=== PATIENT | female | born 1945 | race African-American/Black ===

== ENCOUNTER 2018-10-22 20:41 | Emergency (ER) | payer BC, OTHER ==
[2017-08-02 15:30] VITALS: BP 177/76
[~2018-10-22 20:41] MED LIST: ACET500T68 PO; AMLO10TA6 PO; CIPR250T PO; DOCU100C28 PO; FERR325T14 PO; GLYB5TAB3 PO; LISI10TA2 PO; METF500T16 PO; Metronidazole PO; NAPR500T8 PO; TRAM-48 PO
== END 2018-10-22 21:33 | disposition left against medical advice (07) ==
LOC: ER 20:41
DX: R07.81 Pleurodynia (principal); R05 Cough; Z53.21 Procedure and treatment not carried out due to patient leaving prior to being seen by health care provider

== ENCOUNTER 2020-07-06 14:00 | Emergency (ER) | payer BC, OTHER ==
[~2020-07-06] VITALS: Ht 162.6 cm; Wt 90.0 kg
[~2020-07-06 14:00] MED LIST changes: -AMLO10TA6 PO; +AMLO10TA8 PO
[2020-07-06] MEDS ORDERED: IV NORMAL SALINE 1000ML BAG 1,000 ML IV ONE (15:15)
[2020-07-06] MEDS ORDERED: ONDANSETRON PF 4 MG/2 ML VIAL. IVP ONE (15:15)
[2020-07-06] MEDS ORDERED: MORPHINE SULFATE 10 MG/ML VIAL. IV ONE (15:15)
[2020-07-06 15:16] LABS: BILIRUBIN,URINE NEGATIVE (NEG); CLARITY,URINE CLEAR; COLOR,URINE YELLOW; NITRITE,URINE NEGATIVE (NEG); PH,URINE 6.5 (<5.0-8.0); PROTEIN,URINE >=300 mg/dL (NEG-TRACE)
[2020-07-06 15:26] LABS: BARBITURATES NEG (NEG); BENZODIAZEPINES NEG (NEG); CANNABINOIDS NEG (NEG); COCAINE NEG (NEG); METHADONE NEG (NEG); OPIATES NEG (NEG); PHENCYCLIDINE NEG (NEG)
[2020-07-06 15:39] LABS: AMPHETAMINE/METHAMPHETAMINE NEG (NEG)
[2020-07-06 15:51] LABS: BASO # 0.1 x10^3/uL (0.0-0.2); BASO % 1 % (0-3); EOS # 0.1 x10^3/uL (0.0-0.7); EOS % 1 % (0-3); HEMATOCRIT 29.3 % (36.0-47.0); LYMPH % 19 % (24-48); MEAN CORPUSCULAR HEMOGLOBIN 23 pg (25-35); MEAN CORPUSCULAR HGB CONC 34 g/dL (31-37); MEAN CORPUSCULAR VOLUME 68 fL (79-100); MONO # 0.9 x10^3/uL (0.0-1.1); MONO % 9 % (0-9); NEUT # 7.3 x10^3/uL (1.8-7.7); NEUT % 70 % (31-73); PLATELET COUNT 269 x10^3/uL (140-400); RED BLOOD COUNT 4.33 x10^6/uL (3.50-5.40); RED CELL DISTRIBUTION WIDTH 20.4 % (11.5-14.5); WHITE BLOOD COUNT 10.4 x10^3/uL (4.0-11.0)
[2020-07-06 15:53] LABS: SQUAMOUS EPITHELIAL CELL,UR FEW /LPF
[2020-07-06 15:54] LABS: BACTERIA,URINE MANY /HPF (0-FEW); RBC,URINE 0 /HPF (0-2)
[2020-07-06 16:03] LABS: CALCIUM 8.4 mg/dL (8.5-10.1); CREATININE 1.7 mg/dL (0.6-1.0); GFR 35.5; POTASSIUM 3.9 mmol/L (3.5-5.1)
--- NOTE | 2020-07-06 16:07 | PHYS DOC ---
Past Medical History Past Medical History: Asthma, Bronchitis, Diabetes-Type II, Diverticulitis, GERD, High Cholesterol, Hypertension, TIA (KALPANA HERNANDEZ APRN) Past Surgical History: Cholecystectomy, Hysterectomy Additional Past Surgical Histo: RIGHT SHOULDER SURGERY (KALPANA HERNANDEZ APRN) Smoking Status: Never Smoker Alcohol Use: None Drug Use: None (KALPANA HERNANDEZ APRN) General Adult EDM: Chief Complaint: ABDOMINAL PAIN HPI: HPI: Patient is a 75 year old female with history of diabetes type 2, hypertension, high cholesterol, who presents to the ED today complaining of 10 out of 10 lower abdominal pain that has been going on intermittently for 1 week. Patient describes the pain as sharp, denies any exacerbating or relieving factors though she mentions sitting up straight relieves some of the pain. She states she has not been able to have a normal bowel movement for couple days. She states she gets small amount of slimy stools occasionally for 1 week. Denies any fever, nausea, vomiting. (KALPANA HERNANDEZ APRN) Review of Systems: Review of Systems: Constitutional: Denies fever or chills. [] Eyes: Denies change in visual acuity. [] HENT: Denies nasal congestion or sore throat. [] Respiratory: Denies cough or shortness of breath. [] Cardiovascular: Denies chest pain or edema. [] GI: Reports abdominal pain, slimy stools, denies nausea, vomiting, bloody stools or diarrhea. [] : Denies dysuria. [] Musculoskeletal: Denies back pain or joint pain. [] Integument: Denies rash. [] Neurologic: Denies headache, focal weakness or sensory changes. [] Psychiatric: Denies depression or anxiety. [] (KALPANA HERNANDEZ APRN) Heart Score: Risk Factors: Risk Factors: DM, Current or recent (<one month) smoker, HTN, HLP, family history of CAD, obesity. Risk Scores: Score 0 - 3: 2.5% MACE over next 6 weeks - Discharge Home Score 4 - 6: 20.3% MACE over next 6 weeks - Admit for Clinical Observation Score 7 - 10: 72.7% MACE over next 6 weeks - Early Invasive Strategies (KALPANA HERNANDEZ APRN) Current Medications: Current Medications Medications (Trade) Dose Ordered Sig/Angeli Start Time Stop Time Status Last Admin Dose Admin Morphine Sulfate (Morphine Sulfate) 5 mg 1X ONCE 07/06/20 15:15 07/06/20 15:16 DC 07/06/20 15:45 5 MG Ondansetron HCl (Zofran) 4 mg 1X ONCE 07/06/20 15:15 07/06/20 15:16 DC Sodium Chloride 1,000 ml @ 1,000 mls/hr 1X ONCE 07/06/20 15:15 07/06/20 16:14 07/06/20 15:44 1,000 MLS/HR (KALPANA HERNANDEZ TICKET MAKER) Allergies: Allergies: Allergies Coded Allergies Type Severity Reaction Last Updated Verified Iodinated Contrast- Oral and IV Dye Adverse Reaction Intermediate NAUSEATED 08/01/17 Yes Penicillins Adverse Reaction Mild SHAKES 12/07/15 Yes (KALPANA HERNANDEZ TICKET MAKER) Physical Exam: PE: Constitutional: Well developed, well nourished, no acute distress, non-toxic appearance. [] HENT: Normocephalic, atraumatic, bilateral external ears normal, oropharynx moist, no oral exudates, nose normal. [] Eyes: PERRLA, EOMI, conjunctiva normal, no discharge. [] Neck: Normal range of motion, no tenderness, supple, no stridor. [] Cardiovascular:Heart rate regular rhythm, no murmur [] Lungs & Thorax: Bilateral breath sounds clear to auscultation [] Abdomen: Rounded abdomen. Bowel sounds normal, soft, tenderness diffusely throughout the abdomen, tenderness worse on the left mid and lower quadrant, no right upper quadrant or right lower quadrant tenderness, no guarding, no rebound pain or tenderness no masses, no pulsatile masses. [] Skin: Warm, dry, no erythema, no rash. [] Back: No tenderness, no CVA tenderness. [] Extremities: No tenderness, no cyanosis, no clubbing, ROM intact, no edema. [] Neurologic: Alert and oriented X 3, normal motor function, normal sensory function, no focal deficits noted. [] Psychologic: Affect normal, judgement normal, mood normal. [] (KALPANA HERNANDEZ TICKET MAKER) Current Patient Data: Labs: Laboratory Tests Test 07/06/20 14:59 07/06/20 15:30 Urine Collection Type Unknown Urine Color Yellow Urine Clarity Clear Urine pH 6.5 (<5.0-8.0) Urine Specific [place] 1.010 (1.000-1.030) Urine Protein >=300 mg/dL (NEG-TRACE) Urine Glucose (UA) Negative mg/dL (NEG) Urine Ketones (Stick) Negative mg/dL (NEG) Urine Blood Negative (NEG) Urine Nitrite Negative (NEG) Urine Bilirubin Negative (NEG) Urine Urobilinogen Dipstick 1.0 mg/dL (0.2 mg/dL) Urine Leukocyte Esterase Small (NEG) Urine RBC 0 /HPF (0-2) Urine WBC 11-20 /HPF (0-4) Urine Squamous Epithelial Cells Few /LPF Urine Bacteria Many /HPF (0-FEW) Urine Mucus Slight /LPF Urine Opiates Screen Neg (NEG) Urine Methadone Screen Neg (NEG) Urine Barbiturates Neg (NEG) Urine Phencyclidine Screen Neg (NEG) Urine Amphetamine/Methamphetamine Neg (NEG) Urine Benzodiazepines Screen Neg (NEG) Urine Cocaine Screen Neg (NEG) Urine Cannabinoids Screen Neg (NEG) Urine Ethyl Alcohol Neg (NEG) White Blood Count 10.4 x10^3/uL (4.0-11.0) Red Blood Count 4.33 x10^6/uL (3.50-5.40) Hemoglobin 10.0 g/dL (12.0-15.5) L Hematocrit 29.3 % (36.0-47.0) L Mean Corpuscular Volume 68 fL (79-100) L Mean Corpuscular Hemoglobin 23 pg (25-35) L Mean Corpuscular Hemoglobin Concent 34 g/dL (31-37) Red Cell Distribution Width 20.4 % (11.5-14.5) H Platelet Count 269 x10^3/uL (140-400) Neutrophils (%) (Auto) 70 % (31-73) Lymphocytes (%) (Auto) 19 % (24-48) L Monocytes (%) (Auto) 9 % (0-9) Eosinophils (%) (Auto) 1 % (0-3) Basophils (%) (Auto) 1 % (0-3) Neutrophils # (Auto) 7.3 x10^3/uL (1.8-7.7) Lymphocytes # (Auto) 2.0 x10^3/uL (1.0-4.8) Monocytes # (Auto) 0.9 x10^3/uL (0.0-1.1) Eosinophils # (Auto) 0.1 x10^3/uL (0.0-0.7) Basophils # (Auto) 0.1 x10^3/uL (0.0-0.2) Platelet Estimate Pending Laboratory Tests 07/06/20 15:30 Vital Signs: Vital Signs Date Time Temp Pulse Resp B/P (MAP) Pulse Ox O2 Delivery O2 Flow Rate FiO2 07/06/20 15:45 24 100 07/06/20 14:39 97.7 89 184/81 (115) Room Air 97.7 (KALPANA HERNANDEZ APRN) EKG: EKG: [] (KALPANA HERNANDEZ APRN) Radiology/Procedures: Radiology/Procedures: []PROCEDURE: CT ABDOMEN PELVIS WO CONTRAST Exam: CT of abdomen and pelvis without contrast INDICATION: Lower abdominal pain for 2 days TECHNIQUE: Sequential axial images through the abdomen and pelvis obtained without IV contrast. Sagittal and coronal reformatted images were reconstructed from the axial data and reviewed. Comparisons: None FINDINGS: Heart size is normal. No pericardial effusion. Strandy opacities at dependent portion lungs likely cyst. No pleural effusion. Evaluation of the solid organs is limited secondary to noncontrast technique. Liver, spleen, pancreas, and adrenals are unremarkable. Gallbladder surgically absent. No perinephric inflammation or hydronephrosis. No renal or ureteral calculi are identified. Bladder is decompressed not well evaluated. Uterus is absent. No abnormal adnexal mass. There is wall thickening at the sigmoid colon with adjacent fat stranding. This is an area of diverticulosis. The remainder of the large and small bowel are unremarkable. Appendix is not identified. No free abdominal air or fluid. No obstruction. Abdominal aorta has a normal course and caliber. No enlarged abdominal lymph nodes are identified. No suspicious osseous lesions or acute fractures. IMPRESSION: Findings likely related to diverticulitis at the sigmoid colon. No evidence for perforation or adjacent abscess. Exposure: One or more of the following in the visualized dose reduction techniques were utilized for this examination: 1. Automated exposure control 2. Adjustment of the MA and/or KV according to patient size 3. Use of iterative of reconstructive technique Electronically signed by: Bailee Nguyen MD (07/06/2020 4:02 PM) [id number] DICTATED and SIGNED BY: BAILEE NGUYEN MD DATE: 07/06/20 1551 (KALPANA HERNANDEZ APRN) Course & Med Decision Making: Course & Med Decision Making Pertinent Labs and Imaging studies reviewed. (See chart for details) This is a 75-year-old female patient presenting to the ED today with lower abdominal pain that began a week ago. CBC with a normal WBC, hemoglobin 10.0 hematocrit 29.3, this is around patient's baseline, creatinine 1.7, BUN 15. Urine analysis noted for UTI, CT of the abdomen and pelvic was noted for acute diverticulitis. Her vitals are stable. Patient was given morphine for pain. My understanding she refused Zofran and the rest of the medications. IV fluids were given. I went to give patient results. She is complaining after getting the morphine she has more pain than when she came to the ED. I offered her a couple choices for her pain including GI cocktail. She refused stating she cannot take anymore medicines from us. She states we are trying to kill her with all of this medications. Informed patient she has diverticulitis, and is going to get Cipro and Flagyl IV in the ED. Nursing staff came back and told me patient refused IV antibiotics and the rest of the medication stating are giving her too many medications and are trying to kill her. I went and talked to patient we had a lengthy conversation. Informed patient advantages of IV antibiotics. Patient continued to refuse stating we are trying to kill her with all this medications. She asked why her daughter was left in the waiting room. Informed her due to COVID19 will leave patient's outside or at the waiting toom. She asked if we have COVID19 patients in this hospital, informed patient this is a hospital and we have COVID19 patients we cannot discriminate on them. She said that she has to leave right now because she cannot be in a hospital with COVID19 patients. Gave her a prescription for Flagyl and Cipro, dicyclomine and Zofran. Recommended she follows up with her own PCP and GI doctor in the course of this week or next week. She refused to be admitted and left. (KALPANA HERNANDEZ APRN) Dragon Disclaimer: Dragon Disclaimer: This electronic medical record was generated, in whole or in part, using a voice recognition dictation system. (KALPANA HERNANDEZ APRN) Departure Departure Impression: Primary Impression: Acute diverticulitis Additional Impressions: ARF (acute renal failure) Qualified Codes: N17.9 - Acute kidney failure, unspecified UTI (urinary tract infection) Qualified Codes: N39.0 - Urinary tract infection, site not specified Disposition: ADMITTED INPATIENT Condition: STABLE Referrals: HELEN JONES MD (PCP) follow up in the course of this week ADA WILEY MD follow up in one week Patient Instructions: Diverticulitis, [id number] Additional Instructions: You have diverticulitis infection, will put you on antibiotics, sure you complete them. Your creatinine was 1.7, this is slightly higher than normal. Push fluids. Follow-up with your doctor in the course of this week. Come back to the ED at any point symptoms worsen. Scripts Dicyclomine Hcl (DICYCLOMINE HCL) 20 Mg Tablet 1 TAB PO TID, #15 TAB 1 Refill Prov: KALPANA HERNANDEZ APRN 07/06/20 Ondansetron (ONDANSETRON ODT) 4 Mg Tab.rapdis 1 TAB PO PRN Q6-8HRS, #16 TAB Prov: KALPANA HERNANDEZ APRN 07/06/20 Metronidazole (FLAGYL) 500 Mg Tablet 500 MG PO TID, #30 TAB Prov: KALPANA HERNANDEZ APRN 07/06/20 Ciprofloxacin Hcl (CIPRO) 500 Mg Tablet 1 TAB PO BID for 10 Days, #20 TAB 0 Refills Prov: KALPANA HERNANDEZ APRN 07/06/20 Justicifation of Admission Dx: Justifications for Admission: Justification of Admission Dx: N/A (KALPANA HERNANDEZ APRN) Attending Signature Attending Signature I have reviewed the PA/OPERATIONS INSPECTOR's note and plan of care. I was available for consultation as needed during the patient's visit in the emergency department. I agree with the clinical impression, plan, and disposition. (ALICE HERNANDEZ DO) KALPANA HERNANDEZ APRN Jul 06, 2020 16:06 ALICE HERNANDEZ DO Jul 06, 2020 18:44
[2020-07-06 16:09] LABS: ALBUMIN 2.9 g/dL (3.4-5.0); ALBUMIN/GLOBULIN RATIO 0.6 (1.0-1.7); MAGNESIUM 2.2 mg/dL (1.8-2.4); TOTAL BILIRUBIN 0.8 mg/dL (0.2-1.0); TOTAL PROTEIN 7.7 g/dL (6.4-8.2)
[2020-07-06] MEDS ORDERED: LIDO:MAALOX 1:1 20 ML SINGLE DOSE. SWSW ONE (16:15)
[2020-07-06] MEDS ORDERED: CIPROFLOXACIN 400MG PREMIX 200 ML IV ONE (16:15)
[2020-07-06 16:30] VITALS: BP 163/75
[2020-07-06] MEDS ORDERED: CIPR500T94 PO (16:39)
[2020-07-06] MEDS ORDERED: DICY20TA3 PO (16:39)
[2020-07-06] MEDS ORDERED: ONDA4TAB12 PO (16:39)
[2020-07-06] MEDS ORDERED: METR500T PO (16:39)
[2020-07-06 16:44] LABS: ANISOCYTOSIS MOD; HYPOCHROMIA SLIGHT; MICROCYTOSIS MARKED; PLT ESTIMATE ADEQUATE (ADEQUATE); POLYCHROMASIA SLIGHT; TARGET CELLS MOD
== END 2020-07-06 16:56 | disposition home or self-care (01) ==
LOC: ER 14:00
DX: N39.0 Urinary tract infection, site not specified (principal); K57.32 Diverticulitis of large intestine without perforation or abscess without bleeding; N17.9 Acute kidney failure, unspecified; R10.30 Lower abdominal pain, unspecified; J45.909 Unspecified asthma, uncomplicated; E11.9 Type 2 diabetes mellitus without complications; K21.9 Gastro-esophageal reflux disease without esophagitis; E78.00 Pure hypercholesterolemia, unspecified; I10 Essential (primary) hypertension; Z86.73 Personal history of transient ischemic attack (TIA), and cerebral infarction without residual deficits; Z90.49 Acquired absence of other specified parts of digestive tract; Z90.710 Acquired absence of both cervix and uterus; Z98.890 Other specified postprocedural states; Z88.0 Allergy status to penicillin; Z91.040 Latex allergy status
CPT/HCPCS: 36415; 74176; 80053; 80307; 81001; 83690; 83735; 85025; 87086; 96361; 96365; 96368; 96375; 99284; G0480; J0744; J2270; J7030; J3490

== ENCOUNTER 2021-10-16 12:42 | Emergency (ER) | payer OTHER ==
[~2021-10-16] VITALS: Ht 162.6 cm; Wt 93.0 kg
[~2021-10-16 12:42] MED LIST changes: +AMLO-187 PO; -AMLO10TA8 PO; +CIPR500T94 PO; +DICY20TA PO; +LISI10TA16 PO; -LISI10TA2 PO; +METR500T PO; +ONDA4TAB12 PO
[2021-10-16] MEDS ORDERED: ASPIRIN CHEWABLE 81 MG TABLET. PO ONE (13:15)
[2021-10-16] MEDS ORDERED: NITROGLYCERIN OINT 1 GM PACKET. TP ONE (13:15)
[2021-10-16 13:17] LABS: BASO # 0.1 x10^3/uL (0.0-0.2); BASO % 1 % (0-3); EOS # 0.5 x10^3/uL (0.0-0.7); EOS % 7 % (0-3); HEMATOCRIT 27.6 % (36.0-47.0); HEMOGLOBIN 9.3 g/dL (12.0-15.5); LYMPH # 1.5 x10^3/uL (1.0-4.8); LYMPH % 23 % (24-48); MEAN CORPUSCULAR HEMOGLOBIN 24 pg (25-35); MEAN CORPUSCULAR HGB CONC 34 g/dL (31-37); MEAN CORPUSCULAR VOLUME 70 fL (79-100); MONO # 0.5 x10^3/uL (0.0-1.1); MONO % 8 % (0-9); NEUT # 3.9 x10^3/uL (1.8-7.7); NEUT % 61 % (31-73); PLATELET COUNT 201 x10^3/uL (140-400); RED BLOOD COUNT 3.95 x10^6/uL (3.50-5.40); RED CELL DISTRIBUTION WIDTH 17.7 % (11.5-14.5); WHITE BLOOD COUNT 6.4 x10^3/uL (4.0-11.0)
[2021-10-16 13:29] LABS: CALCIUM 8.8 mg/dL (8.5-10.1); CREATININE 2.3 mg/dL (0.6-1.0); GFR 24.9; POTASSIUM 5.1 mmol/L (3.5-5.1)
[2021-10-16 13:35] LABS: ALBUMIN 3.6 g/dL (3.4-5.0); ALBUMIN/GLOBULIN RATIO 0.9 (1.0-1.7); MAGNESIUM 2.8 mg/dL (1.8-2.4); TOTAL BILIRUBIN 0.7 mg/dL (0.2-1.0); TOTAL PROTEIN 7.6 g/dL (6.4-8.2)
[2021-10-16 13:38] LABS: PROTHROMBIN TIME PATIENT 13.5 SEC (11.7-14.0)
[2021-10-16 13:42] LABS: D-DIMER 0.61 ug/mlFEU (0.00-0.50)
--- NOTE | 2021-10-16 13:58 | RAD ---
XR CHEST 1V CLINICAL INDICATIONS: Reason: Chest pain / Spl. Instructions: / History: COMPARISON: July 31, 2017. Findings: No new lung infiltrate or pleural effusion or pulmonary edema or lung mass or pneumothorax is seen. The heart size, pulmonary vasculature, mediastinum and both severino are stable. IMPRESSION: No acute radiographic abnormality is seen. Electronically signed by: Masoud Tiwari MD (10/16/2021 1:55 PM) [id number]
--- NOTE | 2021-10-16 14:20 | PHYS DOC ---
Past Medical History Past Medical History: Asthma, Bronchitis, Diabetes-Type II, Diverticulitis, GERD, High Cholesterol, Hypertension, TIA (ALICE QUINTANILLA APRN) Past Surgical History: Cholecystectomy, Hysterectomy Additional Past Surgical Histo: RIGHT SHOULDER SURGERY (ALICE QUINTANILLA APRN) Smoking Status: Never Smoker Alcohol Use: None Drug Use: None (ALICE QUINTANILLA APRN) General Adult EDM: Chief Complaint: CHEST PAIN HPI: HPI: Patient is a 76-year-old female who presents to the emergency department complaining of a sudden onset left-sided chest pain after reaching into her tub to pick something out. Patient reports she has had a heart attack in the past, took 2 nitroglycerin sublingual which brought her pain from a 8 out of 10 down to a 0. Patient reports approximately 30 minutes later her chest pain started to come back so she called 911 for transport to the emergency department. Patient currently reports a 4 out of 10 chest pain. Patient denies shortness of breath, cough, chest or nasal congestion, denies diaphoretic episodes, syncopal episodes or near syncopal episodes. Patient reports a history of hypertension, diabetes type 2, hypercholesterol, chronic kidney disease. She denies recent fever or chills. Patient denies other physical complaints or physical concerns. (ALICE QUINTANILLA APRN) Review of Systems: Review of Systems: 14 body systems of review of systems have been reviewed. See HPI for pertinent positives and negative responses, otherwise all other systems are negative, nonpertinent or noncontributory. Constitutional: Negative except as outlined in HPI above. Skin: Negative except as outlined in HPI above. Eyes: Negative except as outlined in HPI above. HENT: Negative except as outlined in HPI above. Respiratory: Negative except as outlined in HPI above. Cardiovascular: Negative except as outlined in HPI above. GI: Negative except as outlined in HPI above. : Negative except as outlined in HPI above. Musculoskeletal: Negative except as outlined in HPI above. Integument: Negative except as outlined in HPI above. Neurologic: Negative except as outlined in HPI above. Endocrine: Negative except as outlined in HPI above. Lymphatic: Negative except as outlined in HPI above. Psychiatric: Negative except as outlined in HPI above. (ALICE QUINTANILLA APRN) Heart Score: C/O Chest Pain: Yes HEART Score for Chest Pain: HEART Score for Chest Pain Response (Comments) Value History Moderately Suspicious 1 ECG Normal 0 Age > 65 2 Risk Factors >3 Risk Factors or Hx CAD 2 Troponin < Normal Limit 0 Total 5 Risk Factors: Risk Factors: DM, Current or recent (<one month) smoker, HTN, HLP, family history of CAD, obesity. Risk Scores: Score 0 - 3: 2.5% MACE over next 6 weeks - Discharge Home Score 4 - 6: 20.3% MACE over next 6 weeks - Admit for Clinical Observation Score 7 - 10: 72.7% MACE over next 6 weeks - Early Invasive Strategies (ALICE QUINTANILLA APRN) Current Medications: Current Medications Medications (Trade) Dose Ordered Sig/Angeli Start Time Stop Time Status Last Admin Dose Admin Aspirin (Aspirin Chewable) 243 mg 1X ONCE 10/16/21 13:15 10/16/21 13:16 DC 10/16/21 13:28 243 MG Nitroglycerin (Nitro-Bid Oint) 1 inch 1X ONCE 10/16/21 13:15 10/16/21 13:16 DC 10/16/21 13:28 1 INCH (ALICE QUINTANILLA APRN) Allergies: Allergies: Allergies Coded Allergies Type Severity Reaction Last Updated Verified Iodinated Contrast Media Adverse Reaction Intermediate NAUSEATED 08/01/17 Yes Penicillins Adverse Reaction Mild SHAKES 12/07/15 Yes (ALICE QUINTANILLA APRN) Physical Exam: PE: Constitutional: Well developed, well nourished, no acute distress, non-toxic appearance. 76-year-old female in no apparent distress. The patient is not cyanotic in appearance, is nontoxic in appearance. Appears very well. HENT: Normocephalic, atraumatic. Eyes: Conjunctiva normal, no discharge. Neck: Normal range of motion, no stridor. Cardiovascular: No cyanosis appreciated, distal cap refill less than 2 seconds. Regular rate and rhythm. Lungs & Thorax: Patient is in no respiratory distress, no audible adventitious lung sounds appreciated. No pain to palpation of the anterior thorax. No change in reported chest pain of the anterior thorax. Patient currently rates pain 4 out of 10, no adventitious lung sounds appreciated for auscultation all lung vanegas. Abdomen: Nontender, no abnormalities noted. Skin: Warm, dry, no erythema, no rash. Back: No tenderness, no deformities. Extremities: No tenderness, no cyanosis, no clubbing, ROM intact, no edema. Neurologic: Alert and oriented X 3, normal motor function, normal sensory function, no focal deficits noted. Psychologic: Affect normal, judgement normal, mood normal. (ALICE QUINTANILLA APRN) Current Patient Data: Labs: Laboratory Tests Test 10/16/21 13:04 White Blood Count 6.4 x10^3/uL (4.0-11.0) Red Blood Count 3.95 x10^6/uL (3.50-5.40) Hemoglobin 9.3 g/dL (12.0-15.5) L Hematocrit 27.6 % (36.0-47.0) L Mean Corpuscular Volume 70 fL (79-100) L Mean Corpuscular Hemoglobin 24 pg (25-35) L Mean Corpuscular Hemoglobin Concent 34 g/dL (31-37) Red Cell Distribution Width 17.7 % (11.5-14.5) H Platelet Count 201 x10^3/uL (140-400) Neutrophils (%) (Auto) 61 % (31-73) Lymphocytes (%) (Auto) 23 % (24-48) L Monocytes (%) (Auto) 8 % (0-9) Eosinophils (%) (Auto) 7 % (0-3) H Basophils (%) (Auto) 1 % (0-3) Neutrophils # (Auto) 3.9 x10^3/uL (1.8-7.7) Lymphocytes # (Auto) 1.5 x10^3/uL (1.0-4.8) Monocytes # (Auto) 0.5 x10^3/uL (0.0-1.1) Eosinophils # (Auto) 0.5 x10^3/uL (0.0-0.7) Basophils # (Auto) 0.1 x10^3/uL (0.0-0.2) Platelet Estimate Pending Prothrombin Time 13.5 SEC (11.7-14.0) Prothrombin Time INR 1.0 (0.8-1.1) D-Dimer (Sapna) 0.61 ug/mlFEU (0.00-0.50) H Sodium Level 143 mmol/L (136-145) Potassium Level 5.1 mmol/L (3.5-5.1) Chloride Level 110 mmol/L (98-107) H Carbon Dioxide Level 23 mmol/L (21-32) Anion Gap 10 (6-14) Blood Urea Nitrogen 49 mg/dL (7-20) H Creatinine 2.3 mg/dL (0.6-1.0) H Estimated GFR (Cockcroft-Gault) 24.9 BUN/Creatinine Ratio 21 (6-20) H Glucose Level 107 mg/dL (70-99) H Calcium Level 8.8 mg/dL (8.5-10.1) Magnesium Level 2.8 mg/dL (1.8-2.4) H Total Bilirubin 0.7 mg/dL (0.2-1.0) Aspartate Amino Transferase (AST) 19 U/L (15-37) Alanine Aminotransferase (ALT) 22 U/L (14-59) Alkaline Phosphatase 101 U/L (46-116) Troponin I High Sensitivity 14 ng/L (4-50) TB-Wrq-R-Type Natriuretic Peptide 1296 pg/mL (0-449) H Total Protein 7.6 g/dL (6.4-8.2) Albumin 3.6 g/dL (3.4-5.0) Albumin/Globulin Ratio 0.9 (1.0-1.7) L Lipase 176 U/L (73-393) Laboratory Tests 10/16/21 13:04 Laboratory Tests 10/16/21 13:04 Vital Signs: Vital Signs Date Time Temp Pulse Resp B/P (MAP) Pulse Ox O2 Delivery O2 Flow Rate FiO2 10/16/21 13:28 68 203/82 10/16/21 12:55 97.3 18 100 Room Air 97.3 (ALICE QUINTANILLA APRN) EKG: EKG: EKG performed at 1259 by ED nursing staff shows a normal sinus rhythm with leftward axis deviation, no other ectopy appreciated, heart rate 72 bpm, MA interval 0.128, QTc interval 0.420, no acute STEMI, no ACS, no acute ischemia appreciated, EKG interpreted by ED attending physician Dr. Hernandez (ALICE QUINTANILLA APRN) Radiology/Procedures: Radiology/Procedures: REASON: Chest pain PROCEDURE: PORTABLE CHEST 1V XR CHEST 1V CLINICAL INDICATIONS: Reason: Chest pain / Spl. Instructions: / History: COMPARISON: July 31, 2017. Findings: No new lung infiltrate or pleural effusion or pulmonary edema or lung mass or pneumothorax is seen. The heart size, pulmonary vasculature, mediastinum and both severino are stable. IMPRESSION: No acute radiographic abnormality is seen. Electronically signed by: Masoud Tiwari MD (10/16/2021 1:55 PM) [id number] (ALICE QUINTANILLA APRN) Course & Med Decision Making: Course & Med Decision Making Pertinent Labs and Imaging studies reviewed. (See chart for details) 76-year-old female, vital signs reviewed, presents to the emergency department concerning left-sided chest pain. Physical examination concerning for possible cardiac chest pain, unstable angina, versus respiratory component. Will order chest x-ray, CBC, CMP, cardiac isoenzymes, pro time INR, serial high-sensitivity troponin I, BNP pro NT, urinalysis assay, serial EKGs, 243 mg baby aspirin, 1 inch Nitropaste. Upon reevaluation of the patient, patient remains pain-free, symptom-free. Discussed with patient second high-sensitivity troponin due to for draw at 1555, also discussed with patient elevated creatinine level and recommended admission to the hospital for acute kidney injury and MACE/HEART score of 5. Patient has refused hospital admission, patient states she feels fine and she is urinating normally and does not feel as if she is having kidney problems. Discussed at length with patient with history of diabetes, creatinine level of 2.3 suggestive of acute kidney injury along with NT proBNP of 1296 suggestive of congestive heart failure exacerbation, HEART score of 5 just above high probability of cardiac injury, heart attack, or , patient continues to refuse further treatment and wishes to go home. Discussed with patient signing AGAINST MEDICAL ADVICE form. Urged patient to please return to the nearest emergency department for returning chest pains and to please follow-up with her primary care physician this coming Monday at [facility] clinic at the very least. Patient is alert and oriented x3, nontoxic in appearance, is not hypoxic, is able to make her own educated medical decisions has elected to leave the emergency department AGAINST MEDICAL ADVICE. The patient has decided to leave our facility against medical advice. I have assessed patient's ability to make informed decision and feel the patient has the capacity to comprehend information regarding the current medical condition and appreciates the impact of the disease or condition and the consequences of various options for treatment, including foregoing treatment. The patient possesses the ability to evaluate all treatment options, comparing the risks and benefits of each option, communicate his or her choice in a consistent manner over time, and is able to make rational choices. I explained to the patient further testing, treatment, and evaluation I would like to perform in the emergency department visit as well as any possible alternatives that can be accomplished in a timely manner. I have outlined the possible risks of foregoing any or all of these interventions and the patient understands and acknowledges that the decision to leave may result in undesirable consequences such as , permanent disability, and/or loss of current lifestyle. Even though leaving AMA is not ideal, I have instructed the patient to follow any discharge instructions given, take any medications prescribed, and resume care as soon as possible with another provider. This conversation was witnessed by another member of the emergency department staff and we clearly communicated the patient is welcome to return anytime to continue care at our facility. (ALICE QUINTANILLA APRN) Dragon Disclaimer: Dragon Disclaimer: This electronic medical record was generated, in whole or in part, using a voice recognition dictation system. (ALICE QUINTANILLA APRN) Departure Departure Impression: Primary Impression: Elevated brain natriuretic peptide (BNP) level Additional Impressions: [id number] kidney injury Qualified Codes: N17.9 - Acute kidney failure, unspecified; N18.9 - Chronic kidney disease, unspecified Chest pain Qualified Codes: R07.9 - Chest pain, unspecified Abnormal EKG Left against medical advice Disposition: LEFT AGAINST MEDICAL ADVICE Condition: GUARDED Referrals: HELEN JONES MD (PCP) Additional Instructions: You were seen today in the emergency department for chest pain. Your chest pain did resolve during your ER stay, however as we discussed your kidney function test is elevated suggestive of an acute kidney injury, your lab result NT proBNP is elevated suggestive of congestive heart failure, your HEART score is equal to 5 which indicates a higher probability of cardiac injury, heart attack, sudden related to cardiac problems. Your EKG did have abnormal findings. I have recommended admission to the hospital for ongoing evaluation of these abnormal findings, you have refused my recommendation for admission. You are leaving the emergency department AGAINST MEDICAL ADVICE. I urged you to follow-up with your primary care doctor at this coming Monday at the very least to discuss findings here at [facility]. Please return to the nearest emergency department for any returning chest pain or shortness of breath or other concerns. Patient does not wish to proceed with medical care recommended by MONIQUE Rodriguez. patient given information related to possible complications, up to and including , which could occur as a result of leaving the hospital at this time. Patient verbalizes understanding of risks involved due to leaving against medical advice. Patient has signed AMA form. Attending Signature Attending Signature I have reviewed the PA/[employer] INTERN's note and plan of care. I was available for consultation as needed during the patient's visit in the emergency department. I agree with the clinical impression, plan, and disposition. (ALICE HERNANDEZ DO) ALICE QUINTANILLA APRN Oct 16, 2021 14:20 ALICE HERNANDEZ DO Oct 23, 2021 18:36
[2021-10-16 14:25] LABS: ANISOCYTOSIS SLIGHT; HYPOCHROMIA SLIGHT; MICROCYTOSIS MOD; PLT ESTIMATE ADEQUATE (ADEQUATE); POIKILOCYTOSIS SLIGHT
[2021-10-16 14:26] LABS: OVALOCYTES PRESENT; TARGET CELLS PRESENT
[2021-10-16 14:36] LABS: BILIRUBIN,URINE NEGATIVE (NEG); CLARITY,URINE CLEAR; COLOR,URINE YELLOW; NITRITE,URINE NEGATIVE (NEG); PROTEIN,URINE NEGATIVE (NEG-TRACE); UROBILINOGEN,URINE 0.2 mg/dL (0.2 mg/dL)
[2021-10-16 14:42] LABS: BACTERIA,URINE 0 /HPF (0-FEW); RBC,URINE 0 /HPF (0-2)
[2021-10-16 15:28] VITALS: BP 178/86
--- NOTE | 2021-10-17 06:53 | EKG ---
[facility] [address] [place] [address] Test Date: 2021-10-16 Test Time: 12:59:29 Pat Name: JOSE RING Department: Room: Gender: F Residential Tech: : [id number] Requested By: ALICE QUINTANILLA Order Number: [id number] Reading MD: Measurements Intervals [place] Rate: 72 P: -64 MD: 128 QRS: -6 QRSD: 92 T: 31 QT: 382 QTc: 420 Interpretive Statements SINUS RHYTHM LEFTWARD AXIS NO SPECIFIC ECG ABNORMALITIES RI6.01 No previous ECG available for comparison
== END 2021-10-16 16:00 | disposition left against medical advice (07) ==
LOC: ER 12:42
DX: N17.9 Acute kidney failure, unspecified (principal); R07.89 Other chest pain; R94.31 Abnormal electrocardiogram [ECG] [EKG]; R79.0 Abnormal level of blood mineral; I12.9 Hypertensive chronic kidney disease with stage 1 through stage 4 chronic kidney disease, or unspecified chronic kidney disease; E11.22 Type 2 diabetes mellitus with diabetic chronic kidney disease; N18.9 Chronic kidney disease, unspecified; J45.909 Unspecified asthma, uncomplicated; K21.9 Gastro-esophageal reflux disease without esophagitis; E78.00 Pure hypercholesterolemia, unspecified; Z86.73 Personal history of transient ischemic attack (TIA), and cerebral infarction without residual deficits; Z91.041 Radiographic dye allergy status; Z88.0 Allergy status to penicillin
CPT/HCPCS: 36415; 71045; 80053; 81001; 82553; 83690; 83735; 83880; 84484; 85025; 85379; 85610; 87086; 93005; 99285

== ENCOUNTER 2022-02-25 12:04 | Emergency (ER) | payer MEDICARE, OTHER ==
[~2022-02-25] VITALS: Ht 152.4 cm; Wt 94.0 kg
[2022-02-25 12:20] VITALS: BP 188/87
== END 2022-02-25 12:25 | disposition left against medical advice (07) ==
LOC: ER 12:04
DX: R06.02 Shortness of breath (principal); R05.9 Cough, unspecified; Z53.21 Procedure and treatment not carried out due to patient leaving prior to being seen by health care provider